=== PATIENT | male | born 1985 | race African-American/Black ===

== ENCOUNTER 2023-11-07 01:26 | Inpatient (IN) | payer BC ==
[~2023-11-07] VITALS: Ht 167.6 cm; Wt 67.6 kg
[2023-11-07] MEDS ORDERED: NALO4SPR BOTHNSTRLS (06:58)
[2023-11-07 08:34] LABS: BASOPHILS % 0.4 % (0.0-2.0); DIFFERENTIAL COMMENT 0; EOSINOPHILS % 3.3 % (0.0-5.0); HEMATOCRIT. 41.4 % (42.0-52.0); LYMPHOCYTES % 17.4 % (20.0-50.0); MEAN CORPUSCULAR HEMOGLOBIN 32.6 pg (28.0-32.0); MEAN CORPUSCULAR HGB CONC 33.8 g/dL (31.0-37.0); MEAN CORPUSCULAR VOLUME 96.4 fL (80.0-94.0); MEAN PLATELET VOLUME 9.8 fl (7.4-10.4); MONOCYTES % 10.6 % (2.0-8.0); NEUTROPHILS % 68.3 % (40.0-76.0); PLATELET 292 x1000/uL (130-400); RED BLOOD CELL COUNT 4.29 mill/uL (4.7-6.1); RED CELL DISTRIBUTION WIDTH 12.5 % (11.6-14.6); WHITE BLOOD COUNT 6.1 x1000/uL (4.5-11.0)
[2023-11-07 08:59] LABS: CHLORIDE 109 mEq/L (98-107); POTASSIUM 4.3 mEq/L (3.5-5.1); SODIUM 140 mEq/L (136-145)
[2023-11-07 09:02] LABS: CALCIUM 10.1 mg/dL (8.7-10.4); CARBON DIOXIDE 24 mEq/L (21-32)
[2023-11-07 09:07] LABS: GLUCOSE 89 mg/dL (70-105); UREA NITROGEN BLOOD 6 mg/dL (9-23)
[2023-11-07 09:09] LABS: ALANINE AMINOTRANSFERASE 13 IU/L (10-49); ALBUMIN 4.4 g/dL (3.2-4.8); ASPARTATE AMINOTRANSFERASE 18 IU/L (<34); BILIRUBIN TOTAL 0.9 mg/dL (0.1-1.0)
[2023-11-07 09:27] LABS: ETHANOL BLOOD < 10 mg/dL (<10); TROPONIN I HIGH SENSITIVITY < 4 ng/L (3.0-53)
[2023-11-07 11:21] LABS: CLARITY URINE CLEAR (CLEAR); COLOR URINE YELLOW (YELLOW); GLUCOSE URINE NEGATIVE (NEGATIVE); KETONES URINE NEGATIVE (NEGATIVE); LEUKOCYTE ESTERASE URINE TRACE (NEGATIVE); NITRITE URINE NEGATIVE (NEGATIVE); OCCULT BLOOD URINE NEGATIVE (NEGATIVE); PROTEIN URINE TRACE (NEGATIVE); SPECIFIC GRAVITY URINE 1.014 (1.005-1.030)
[2023-11-07 11:35] LABS: BACTERIA URINE NONE SEEN; RBC URINE 0-2 /hpf (0-2); SQUAMOUS EPITHELIAL CELL URINE RARE /lpf (RARE/1+); YEAST URINE NONE SEEN
[2023-11-07 11:39] LABS: *AMPHETAMINES SCREEN URINE PRESUMPTIVE POSITIVE (NEGATIVE); *BARBITURATES SCREEN URINE NEGATIVE (NEGATIVE); *BENZODIAZEPINES SCREEN URINE NEGATIVE (NEGATIVE); *COCAINE SCREEN URINE NEGATIVE (NEGATIVE); CANNABINOID URINE SCREEN PRESUMPTIVE POSITIVE (NEGATIVE); ECSTASY MDMA SCREEN URINE NEGATIVE (NEGATIVE); METHADONE URINE SCREEN NEGATIVE (NEGATIVE); OPIATES URINE SCREEN NEGATIVE (NEGATIVE); PHENCYCLIDINE URINE SCREEN NEGATIVE (NEGATIVE)
[2023-11-07] MEDS ORDERED: ACETAMINOPHEN 325MG TABLET PO PRN (13:00)
[2023-11-07] MEDS ORDERED: CLONIDINE 0.1MG TABLET PO PRN (13:00)
[2023-11-07] MEDS ORDERED: IPRATROPIUM/ALBUTEROL 0.5-3(2.5)MG/3ML NEB HHN PRN (13:00)
[2023-11-07] MEDS ORDERED: ONDANSETRON HCL 4MG/2ML INJ IV PRN (13:00)
[2023-11-07] MEDS ORDERED: DIPHENHYDRAMINE 50MG/ML VIAL IV PRN (13:00)
[2023-11-07] MEDS: SODIUM CHLORIDE 0.9% 1,000 ML IV SCH (13:16)
[2023-11-07 19:30] VITALS: BP 152/83; PULSE 105; RESP 18; TEMP 98.2
[2023-11-07 20:00] VITALS: BP 125/84; PULSE 107; RESP 19; TEMP 97.9
[2023-11-08] VITALS: BP 119/88; PULSE 99; RESP 19; TEMP 97.8
[2023-11-08 04:00] VITALS: BP 122/92; PULSE 101; RESP 19; TEMP 97.7
[2023-11-08 07:17] LABS: CHLORIDE 107 mEq/L (98-107); POTASSIUM 3.7 mEq/L (3.5-5.1); SODIUM 141 mEq/L (136-145)
[2023-11-08 07:18] LABS: CARBON DIOXIDE 25 mEq/L (21-32)
[2023-11-08 07:19] LABS: CALCIUM 9.9 mg/dL (8.7-10.4)
[2023-11-08 07:20] LABS: BASOPHILS % 0.3 % (0.0-2.0); EOSINOPHILS % 1.1 % (0.0-5.0); HEMATOCRIT. 40.7 % (42.0-52.0); HEMOGLOBIN. 13.6 g/dL (14.0-18.0); LYMPHOCYTES % 7.3 % (20.0-50.0); MEAN CORPUSCULAR HEMOGLOBIN 31.7 pg (28.0-32.0); MEAN CORPUSCULAR HGB CONC 33.4 g/dL (31.0-37.0); MEAN CORPUSCULAR VOLUME 94.9 fL (80.0-94.0); MEAN PLATELET VOLUME 10.5 fl (7.4-10.4); MONOCYTES % 3.2 % (2.0-8.0); NEUTROPHILS % 88.1 % (40.0-76.0); PLATELET 260 x1000/uL (130-400); RED BLOOD CELL COUNT 4.29 mill/uL (4.7-6.1); RED CELL DISTRIBUTION WIDTH 12.3 % (11.6-14.6)
[2023-11-08 07:23] LABS: GLUCOSE 88 mg/dL (70-105); UREA NITROGEN BLOOD 10 mg/dL (9-23)
[2023-11-08 07:25] LABS: ALANINE AMINOTRANSFERASE 10 IU/L (10-49); ALBUMIN 4.1 g/dL (3.2-4.8); ASPARTATE AMINOTRANSFERASE 12 IU/L (<34)
[2023-11-08 07:26] LABS: PROTEIN TOTAL 7.6 g/dL (6.0-8.3)
[2023-11-08 08:00] VITALS: BP 115/80; PULSE 80; RESP 19; TEMP 96.7
[2023-11-08 16:00] VITALS: BP 97/53; PULSE 78; RESP 19; TEMP 96.7
[2023-11-08 20:00] VITALS: BP 94/47; PULSE 86; RESP 19; TEMP 99.7
[2023-11-09] VITALS: BP 101/50; PULSE 92; RESP 19; TEMP 98.9
[2023-11-09 04:00] VITALS: BP 98/56; PULSE 86; RESP 18; TEMP 97.9
[2023-11-09 08:00] VITALS: BP 113/70; PULSE 77; RESP 18; TEMP 98.2
[2023-11-09 11:43] VITALS: BP 113/70; PULSE 77; TEMP 98.2; O2SAT 99
== END 2023-11-09 12:10 | disposition home or self-care (01) | DRG 918 ==
LOC: ER 01:26 → EDBEDREQ 10:03 → 5WST 11:19 → EDBEDREQ 11:21 → 6EST 16:53
PROVIDERS: ADMIT Internal Medicine; ATTEND Internal Medicine
DX: T50.991A Poisoning by other drugs, medicaments and biological substances, accidental (unintentional), initial encounter (principal); R40.0 Somnolence; Y92.89 Other specified places as the place of occurrence of the external cause; Z79.899 Other long term (current) drug therapy
CPT/HCPCS: 36415; 71045; 80053; 80305; 80320; 81003; 82962; 84484; 85025; 93970; 99285; G0480